=== PATIENT | female | born 1955 | race Caucasian/White ===

== ENCOUNTER 2018-10-06 12:44 | Outpatient (CLI) | payer OTHER ==
--- NOTE | 2018-10-06 12:55 | RAD ---
EXAM: Single view of the chest HISTORY: +PPD COMPARISON: None FINDINGS: Single view of the chest shows a normal sized cardiomediastinal silhouette. There is no eric dence of consolidation, mass, or pleural effusion. The bones are unremarkable. IMPRESSION: No evidence of acute cardiopulmonary disease
== END 2018-10-06 12:45 | disposition home or self-care (01) ==
LOC: MADRAD 12:44
PROVIDERS: ATTEND Family Medicine
DX: R76.12 Nonspecific reaction to cell mediated immunity measurement of gamma interferon antigen response without active tuberculosis (principal)
CPT/HCPCS: 71045